=== PATIENT | female | born 1960 | race Caucasian/White ===

== ENCOUNTER 2018-04-07 11:57 | Day surgery (SDC) | payer MEDICARE, MEDICAID ==
--- NOTE | 2018-04-07 07:26 | History and Physical Report ---
DATE: 04/07/2018. CHIEF COMPLAINT AND HISTORY OF CHIEF COMPLAINT: This patient presents with a history of an intractable cervical radiculopathy. Due to the failure of therapy , a spinal cord stimulator trial was conducted out of the area at a different facility. This resulted in greater than 75 percent pain control. The patient was referred to our facility for consideration of a permanent implant. After thorough review it was found that she is an appropriate candidate. She presents today for implantation of a cervical spinal cord stimulator along with replacement of the nonfunctional lumbar stimulator generator. PAST MEDICAL HISTORY: Chronic headaches, reflux, degenerative arthritis. PAST SURGICAL HISTORY: Lumbar spinal surgery, laminectomy, stimulator implant. EMPLOYMENT STATUS: She works. MEDICATIONS ON ADMISSION: To be provided. ALLERGIES: Morphine, diclofenac, contrast. SOCIAL HISTORY: Smoking and caffeine. FAMILY HISTORY: Asthma, diabetes, coronary artery disease, hypertension. REVIEW OF SYSTEMS: The patient is appropriate and in no acute distress. The remainder of the systems review shows glasses. PHYSICAL EXAMINATION: General: Height and weight unavailable. Vital Signs: Not available. HEENT: Within normal limits. Lungs: Clear. Heart: Regular rate and rhythm. Abdomen: Nontender. Musculoskeletal: Examination of the musculoskeletal system shows diffuse tenderness throughout the cervical spine. There is a pattern of pain extending into the right upper extremity. Motor and sensory field function is intact. There are no obvious sensory field abnormalities and no motor weakness. The generator for the lumbar spine is at the right posterior gluteal margin. The incisions are intact. Neurologic: Cranial nerves are intact. IMPRESSION: 1. INTRACTABLE CERVICAL RADICULOPATHY, ICD-10 CODE M54.12. 2. LUMBAR RADICULOPATHY, ICD-10 CODE M54.16 AND M54.17. PLAN: The patient is here for implantation of a spinal cord stimulator internal generator. The potential risks, side effects, and complications have been carefully reviewed and discussed. These include nerve root injury, spinal cord injury, paralysis, spinal headache. Because the generator is nonfunctional for the lumbar system at the right posterior gluteal margin, we will place a new generator. No lead changes will be made. All of the potential risks, side effects, and complications have been reviewed and discussed for all systems. The procedure will be considered outpatient, although an overnight stay will be evaluated. JOB NUMBER: [id number] cc: Dr. Aris ZAIDI
[~2018-04-07 11:57] MED LIST: ACETAMINOPHEN 1,000 MG/100 ML BTL IV ONE; CEFAZOLIN 2 Gram 2 GM/50 ML BAG IVPB ONE; FAMOTIDINE 20MG TABLET PO ONE; MECLIZINE 25 MG TABLET PO ONE; METOCLOPRAMIDE 10 MG TABLET PO ONE
[2018-04-07] MEDS ORDERED: BUPIVACAINE 0.5% W/EPI MPF 30 ML VIAL IVP ONE (11:58)
[2018-04-07] MEDS ORDERED: LIDOCAINE 1% W/EPI 1:200,000 MPF 30ML SQ ONE (11:58)
[2018-04-07] MEDS ORDERED: FENTANYL PF 100MCG/2ML VIAL IV ONE (11:58)
[2018-04-07] MEDS ORDERED: HYDROMORPHONE HCL 2 MG/ML VIAL IV ONE (11:58)
[2018-04-07] MEDS ORDERED: PROPOFOL 10 MG/ML VIAL IV ONE (11:58)
[2018-04-07] MEDS ORDERED: DIPHENHYDRAMINE HCL 25 MG CAPSULE PO PRN ×2 (16:17)
[2018-04-07] MEDS ORDERED: DIPHENHYDRAMINE HCL 50 MG/ML VIAL IVP PRN ×2 (16:17)
[2018-04-07] MEDS ORDERED: METOCLOPRAMIDE 10 MG TABLET PO PRN (16:17)
[2018-04-07] MEDS ORDERED: AL HYDROX/MAG HYDROX 30ML UD PO PRN (16:17)
[2018-04-07] MEDS ORDERED: HYDROMORPHONE HCL 2 MG/ML VIAL IM PRN ×2 (16:17)
[2018-04-07] MEDS ORDERED: ACETAMINOPHEN 325 MG TAB PO PRN ×2 (16:17)
[2018-04-07] MEDS ORDERED: OXYCODONE/APAP 10MG-325MG TABLET PO PRN ×2 (16:17)
[2018-04-07] MEDS ORDERED: TEMAZEPAM 15 MG CAPSULE PO PRN ×2 (16:17)
[2018-04-07] MEDS ORDERED: HYDROCODONE/APAP 7.5/325MG TABLET PO PRN ×2 (16:17)
[2018-04-07] MEDS ORDERED: SENNOSIDES/DOCUSATE SODIUM UD CAPSULE PO PRN ×2 (16:17)
[2018-04-07] MEDS ORDERED: METOCLOPRAMIDE HCL 10 MG/2 ML VIAL IVP PRN (16:17)
[2018-04-07] MEDS ORDERED: PREGABALIN 50 MG CAPSULE PO SCH (16:30)
[2018-04-07] MEDS ORDERED: PREGABALIN 25 MG CAPSULE PO SCH (16:30)
[2018-04-07] MEDS ORDERED: CEFAZOLIN 2 Gram 2 GM/50 ML BAG IVPB SCH (21:30)
[2018-04-07] MEDS ORDERED: PREGABALIN (LYRICA) 100MG CAPSULE PO SCH (22:00)
[2018-04-07] MEDS ORDERED: CYCLOBENZAPRINE 10MG TABLET PO SCH (22:00)
[2018-04-07] MEDS ORDERED: 0.9 % SODIUM CHLORIDE 10ML SYR IVP SCH (22:00)
--- NOTE | 2018-04-08 20:44 | Operative Note - [place]ro ---
DATE OF SURGERY: 04/07/18 PREOPERATIVE DIAGNOSES: 1. CERVICAL RADICULOPATHY, ICD-10 CODE = M54.12. 2. LAMINECTOMY IMPLANTED STIMULATOR WITH BATTERY DEPLETION, ICD-10 CODE = M96.1. OPERATION: 1. FLUOROSCOPICALLY-GUIDED EPIDURAL ACCESS T1-2 RIGHT, PLACEMENT OF SPINAL CORD STIMULATOR LEAD 1, NEVRO OCTAPOLAR 8 ELECTRODES INSERTED LEFT C2. 2. FLUOROSCOPICALLY-GUIDED EPIDURAL ACCESS T2-3 RIGHT, PLACEMENT OF SPINAL CORD STIMULATOR LEAD 2, NEVRO OCTAPOLAR 8 ELECTRODES INSERTED RIGHT OFFSET LEAD 1, C2. 3. INCISION, SUBCUTANEOUS DISSECTION, AND ANCHORING LEAD 1 AND LEAD 2 TO SKIN USING A NEVRO LOCKING ANCHOR. 4. INCISION, SUBCUTANEOUS DISSECTION, AND CREATION OF A SUBCUTANEOUS POUCH AT RIGHT FLANK FOR PLACEMENT OF GENERATOR IDENTIFIED PROGRAMMABLE RECHARGEABLE. 5. TUNNELING BETWEEN LEAD POUCH, PLACEMENT OF LEADS INTO GENERATOR POUCH INTERFACED TO GENERATOR. 6. PLACEMENT OF GENERATOR POUCH. CLOSURE OF INCISIONS A 2-0 STRATAFIX FOR FASCIA AND A 3-0 STRATAFIX SUTURE FOR SKIN SUBCUTICULAR. DERMABOND PLACED. 7. INCISION, SUBCUTANEOUS DISSECTION, AND REMOVAL AND REPLACEMENT OF INTERNAL PULSE GENERATOR FOR LAMINECTOMY PADDLE STIMULATOR, RIGHT POSTERIOR GLUTEAL MARGIN. 8. CLOSURE OF GENERATOR INCISION 2-0 STRATAFIX FASCIA, 3-0 STRATAFIX SUBCUTICULAR. DERMABOND CLOSURE. 9. COMPLEX PROGRAMMING INTERNAL GENERATOR CERVICAL STIMULATOR RECOVERY ROOM 20 MINUTES. SURGEON: YOVANI HENRY D.O. ANESTHESIA: LOCAL SEDATION. ANESTHESIA PROVIDER: NKECHI WHEELER CRNA. INDICATION: This patient presents with a history of an intractable cervical radiculopathy, which was treated with a cervical spinal cord stimulator trial with 75 plus percent pain control. She has been referred to this facility for permanent implantation of a cervical spinal cord stimulator two leads Nevro Octapolar system along with this, she has a laminectomy paddle, lead in place with a depleted battery at the right posterior gluteal margin. She has also been sent for replacement of that component battery. PROCEDURE: Intravenous line, vital sign monitoring, IV sedation, prepped and draped in sterile technique, patient position prone. Sterile prep, sterile technique. The epidural interspace at T1-2 and 2-3 were identified and marked on the right. Skin infiltrated, standard epidural needles [id number]. At 1-2, spinal cord stimulator lead 1, a Nevro Octapolar with 8 electrodes advanced left of midline C2. With the epidural access, same technique at T2-3 on the right, spinal cord stimulator lead 2, a Nevro Octapolar 8 electrodes system, advanced positioned right of the midline parallel but slightly offset to lead 1 at C2. The skin above and below the needles infiltrated, incision made , and subcutaneous dissection was conducted to the supraspinous fascia. Each lead was anchored to the supraspinous fascia with a Nevro Locking [place] and nonabsorbable suture. At the right flank; site picked by the patient for the generator, skin infiltrated, incision made, and subcutaneous dissection was conducted to the deep fascia making a pouch of appropriate size for the Nevro Programmable Rechargeable generator. A tunneling tool was used to carry the leads into the generator pouch and then each lead was interfaced to the generator. Antibiotic irrigation and Bovie for hemostasis. The incisions were then closed 2-0 STRATAFIX suture for fascia and a 3-0 STRATAFIX suture for subcuticular. At the right posterior gluteal margin below the belt line, the previous generator for the laminectomy paddle identified, skin infiltrated, incision made, and subcutaneous dissection was conducted to the generator. The generator was then exteriorized and from the leads extensions. A new generator, Nevro Programmable Rechargeable, was then placed onto the field and interfaced to the indwelling leads. Antibiotic irrigation and Bovie for hemostasis. Once connected to the leads, the generator was placed into the pouch and the pouch was closed with 2-0 STRATAFIX for the fascia and a 3-0 STRATAFIX subcuticular Dermabond closure. Patient transferred to the Recovery Room stable, no side-effects from the procedure or the sedation. In the Recovery Room, programming was then performed to ensure appropriate connections and functionality over 20 minutes. She will be kept overnight for observation because of the two hour drive to home and in the morning be discharged. DISCHARGE INSTRUCTIONS: 1. Sites to remain clean and dry. No showering or bathing in any way that would disrupt dressings. If it happens, contact the clinic. 2. Standard medications resumed including Levaquin, the antibiotic, 500 mg once a day for 14 days. 3. The office will contact the patient at home to set up an evaluation in 7-10 days to check the sites. Until then, she has been told and advised not to sit in water, no sitting in hot tub. She can shower. Limit bend, lift, push, pull, and all aggressive activities. We will evaluate the sites in 7-10 days. All other instructions provided, numbers to contact, problems given. cc: Dr. Cesar Hurst JOB NUMBER: [id number] MTDD
--- NOTE | 2018-04-09 08:51 | RADIOLOGY REPORT ---
EXAM: SINGLE VIEW OF THE CERVICAL AND THORACIC SPINES HISTORY: POSTOP. TECHNIQUE: A single AP view of the cervical and thoracic spines were obtained. Comparison: Intraoperative images from today's date. FINDINGS: There are stimulating wires projecting over the cervical spine with the proximal tips projecting over approximately the C2 level. In addition, there are stimulating wires projecting over the lower thoracic spine at approximately the T8 level. Correlate with intraoperative findings. IMPRESSION: STIMULATING WIRES IN PLACE, ABOVE. JOB NUMBER: [id number] MTDD
== END 2018-04-07 18:11 | disposition home or self-care (01) ==
LOC: SUR 11:57 → MEDSURG 15:58 → SUR 18:11
PROVIDERS: ATTEND Pain Medicine Interventional Pain Medicine
DX: M54.12 Radiculopathy, cervical region (principal); M96.1 Postlaminectomy syndrome, not elsewhere classified
CPT/HCPCS: 63650; 63685; 01936; 72020; J3010; J1170; J0690; C1778; C1820; J1200; J2765